=== PATIENT | female | born 2000 | race Caucasian/White ===

== ENCOUNTER 2020-09-09 13:47 | Observation (INO) | payer MEDICAID, SELFPAY ==
[~2020-09-09] VITALS: Ht 162.6 cm; Wt 68.0 kg
[2020-09-09 14:00] VITALS: BP 106/65
[2020-09-09] MEDS ORDERED: PNV91TAB8 PO (14:24)
[2020-09-09] MEDS ORDERED: FERR-212 PO (14:24)
== END 2020-09-09 15:15 | disposition home or self-care (01) ==
LOC: MFCC 13:47
PROVIDERS: ADMIT Obstetrics & Gynecology; ATTEND Obstetrics & Gynecology
DX: O26.893 Other specified pregnancy related conditions, third trimester (principal); R10.9 Unspecified abdominal pain; O99.891 Other specified diseases and conditions complicating pregnancy; M54.9 Dorsalgia, unspecified; R82.998 Other abnormal findings in urine; Z3A.38 38 weeks gestation of pregnancy
CPT/HCPCS: 59025; 81000; G0378